=== PATIENT | male | born 2000 | race Caucasian/White ===

== ENCOUNTER 2024-08-26 15:47 | Emergency (ER) | payer SELFPAY ==
[~2024-08-26] VITALS: Ht 165.1 cm; Wt 60.0 kg
[2024-08-26 15:58] VITALS: O2SAT 100
[2024-08-26] MEDS ORDERED: CEPH500C2 MT (17:25)
[2024-08-26] MEDS ORDERED: SULF1TAB48 MT (17:25)
[2024-08-26] MEDS: ACETAMINOPHEN 325MG TABLET PO ONE (17:57)
[2024-08-26 17:58] VITALS: BP 111/59; PULSE 68; RESP 17; TEMP 36.55848; O2SAT 100
== END 2024-08-26 17:59 | disposition home or self-care (01) ==
LOC: ER 15:47
DX: M27.2 Inflammatory conditions of jaws (principal); R60.9 Edema, unspecified
CPT/HCPCS: 99283